=== PATIENT | female | born 1945 | race Caucasian/White ===

== ENCOUNTER 2017-10-30 16:05 | Emergency (ER) | payer OTHER ==
[2017-10-30 16:16] VITALS: BP 147/72; PULSE 97; TEMP 98.9; BMI 31.2
[2017-10-30 18:28] LABS: BASO % 0.5 % (0-2.0); EOS % 3.5 % (0-4.5); HEMATOCRIT 35.3 % (32.4-45.2); HEMOGLOBIN 11.9 GM/dL (10.7-15.3); LYMPH % 34.9 % (8-40); MCHC 33.8 g/dl (32.0-36.0); MEAN CELL VOLUME 85.9 fl (80-96); MEAN PLT VOLUME 9.2 fl (7.5-11.1); NEUT % 55.1 % (42.8-82.8); PLATELET COUNT 240 K/MM3 (134-434); RBC 4.11 M/mm3 (3.60-5.2); RDW 14.6 % (11.6-15.6); WHITE BLOOD COUNT 6.8 K/mm3 (4.0-10.0)
[2017-10-30 18:41] LABS: INR 0.98 (0.82-1.09); PROTHROMBIN TIME (PATIENT) 11.1 SEC (9.98-11.88)
[2017-10-30 18:44] LABS: ACTIVATED PTT 28.1 SECONDS (26.9-34.4)
[2017-10-30 19:18] LABS: ALBUMIN 3.9 g/dl (3.4-5.0); ANION GAP 6 (8-16); BLOOD UREA NITROGEN 27 mg/dL (7-18); CALCIUM 8.7 mg/dL (8.5-10.1); CHLORIDE 105 mmol/L (98-107); CO2 27 mmol/L (21-32); GLUCOSE,RANDOM 245 mg/dL (74-106); POTASSIUM 4.4 mmol/L (3.5-5.1); SGPT/ALT 31 U/L (12-78); SODIUM 138 mmol/L (136-145)
[2017-10-30 19:22] LABS: ALK PHOS 113 U/L (45-117); CREATININE 1.5 mg/dL (0.55-1.02); SGOT/AST 19 U/L (15-37); TOT PROT 7.7 g/dl (6.4-8.2)
[2017-10-30 19:45] LABS: BILIRUBIN,TOTAL < 0.1 mg/dL (0.2-1.0)
--- NOTE | 2017-10-31 13:35 | EKG ---
Test Reason : Blood Pressure : / mmHG Vent. Rate : 094 BPM Atrial Rate : 094 BPM P-R Int : 146 ms QRS Dur : 064 ms QT Int : 348 ms P-R-T Axes : 033 002 026 degrees QTc Int : 435 ms NORMAL SINUS RHYTHM POSSIBLE LEFT ATRIAL ENLARGEMENT INFERIOR INFARCT (CITED ON OR BEFORE 03-NOV-2013) ANTEROSEPTAL INFARCT (CITED ON OR BEFORE 03-NOV-2013) ABNORMAL ECG WHEN COMPARED WITH ECG OF 03-NOV-2013 17:47, NO SIGNIFICANT CHANGE WAS FOUND Confirmed by MD Alfredo, Tony ([id number]) on 10/31/2017 1:35:37 PM Referred By: Confirmed By:Tony Fuentes MD
== END 2017-10-30 20:32 | disposition left against medical advice (07) ==
LOC: JER 16:05
DX: Z53.21 Procedure and treatment not carried out due to patient leaving prior to being seen by health care provider (principal)
CPT/HCPCS: 80053; 82550; 84484; 85025; 85610; 85730; 93005; 93010; 99281-25

== ENCOUNTER 2023-09-18 13:42 | Emergency (ER) | payer OTHER ==
[2023-09-18 14:00] VITALS: BP 138/56; PULSE 98; RESP 18; TEMP 97; BMI 32.0
[2023-09-18] MEDS ORDERED: morphine SULFATE 4 MG/ML VIAL ONE (15:48)
[2023-09-18] MEDS ORDERED: LIDOCAINE 4% PATCH TP ONE (15:49)
[2023-09-18 16:14] LABS: BASO % 0.6 % (0-2.0); EOS % 2.3 % (0-4.5); HEMATOCRIT 33.9 % (32.4-45.2); LYMPH % 25.3 % (8-40); MCH 24.7 pg (25.7-33.7); MCHC 32.6 g/dl (32.0-36.0); MEAN CELL VOLUME 75.8 fl (80-96); MEAN PLT VOLUME 8.1 fl (7.5-11.1); MONO % 6.1 % (3.8-10.2); NEUT % 65.7 % (42.8-82.8); PLATELET COUNT 259 10^3/uL (134-434); RBC 4.47 M/mm3 (3.60-5.2); WHITE BLOOD COUNT 7.6 K/mm3 (4.0-10.0)
[2023-09-18] MEDS: LIDOCAINE 4% PATCH TP ONE (16:18)
[2023-09-18] MEDS: morphine CARPU-JECT 4 MG/1 ML DISP.SYRIN IVPUSH ONE (16:19)
[2023-09-18 16:32] LABS: POTASSIUM 4.7 mmol/L (3.5-5.1)
[2023-09-18 16:34] LABS: ALBUMIN 3.2 g/dl (3.4-5.0); BLOOD UREA NITROGEN 25.4 mg/dL (7-18); CALCIUM 9.6 mg/dL (8.5-10.1)
[2023-09-18 16:37] LABS: CREATININE 1.4 mg/dL (0.55-1.3)
[2023-09-18 16:38] LABS: TOT PROT 7.5 g/dl (6.4-8.2)
[2023-09-18 16:39] LABS: BILIRUBIN,TOTAL 0.5 mg/dL (0.2-1)
[2023-09-18] MEDS ORDERED: oxyCODONE HCL 5 MG TABLET ONE (20:27)
[2023-09-18] MEDS: oxyCODONE HCL 5 MG TABLET PO ONE (20:31)
[2023-09-18] MEDS ORDERED: LIDOCAINE PATCH REMOVAL MC SCH (22:00)
== END 2023-09-18 21:12 | disposition home or self-care (01) ==
LOC: JER 13:42
PROC: 3E033GC Introduction of Other Therapeutic Substance into Peripheral Vein, Percutaneous Approach (ICD-10-PCS; principal; 2023-09-18)
DX: M54.50 Low back pain, unspecified (principal); G89.29 Other chronic pain; R26.2 Difficulty in walking, not elsewhere classified
CPT/HCPCS: 36415; 72125-TC; 72131-TC; 80053; 85025; 96374; 99284-25

== ENCOUNTER 2023-10-17 05:01 | Day surgery (SDC) | payer OTHER ==
[2023-10-12 12:23] VITALS: BMI 31.6
[2023-10-17] MEDS: LIDOCAINE HCL 1% PRESERVATIVE FREE - 30ML VIAL IJ ONE
[2023-10-17] MEDS ORDERED: LIDOCAINE HCL/PF 1% SDV 5ML VIAL ONE (07:10)
[2023-10-17] MEDS ORDERED: BUPIVACAINE HCL/PF 0.75% 10 ML VIAL ONE (07:10)
[2023-10-17 07:33] VITALS: RESP 18
[2023-10-17] MEDS: BUPIVACAINE HCL/PF 0.5% (5MG/ML) 10 ML VIAL IJ ONE ×2 (09:08)
[2023-10-17] MEDS ORDERED: ACETAMINOPHEN 500 MG TABLET (FP) ONE (10:08)
[2023-10-17] MEDS: ACETAMINOPHEN 500 MG TABLET (FP) PO ONE (10:10)
[2023-10-17 11:03] VITALS: BP 141/75; PULSE 83; TEMP 97.9
[2023-10-17] MEDS ORDERED: ACETAMINOPHEN 500 MG TABLET (FP) PO PRN (12:23)
== END 2023-10-17 10:45 | disposition home or self-care (01) ==
LOC: JASU-SURG 05:01
PROVIDERS: ATTEND Pain Medicine Pain Medicine
PROC: 3E0T33Z Introduction of Anti-inflammatory into Peripheral Nerves and Plexi, Percutaneous Approach (ICD-10-PCS; 2023-10-17)
PROC: 3E0T3BZ Introduction of Anesthetic Agent into Peripheral Nerves and Plexi, Percutaneous Approach (ICD-10-PCS; principal; 2023-10-17 08:45)
DX: M47.812 Spondylosis without myelopathy or radiculopathy, cervical region (principal)
CPT/HCPCS: 76000-TC-FY; 82962

== ENCOUNTER 2023-11-28 04:18 | Day surgery (SDC) | payer OTHER ==
[2023-11-24 11:21] VITALS: BMI 31.8
[2023-11-28] MEDS ORDERED: DEXAMETHASONE SOD PHOSPHATE 10 MG/1 ML VIAL ONE (07:20)
[2023-11-28] MEDS ORDERED: LIDOCAINE HCL/PF 1% SDV 5ML VIAL ONE (07:20)
[2023-11-28] MEDS: DEXAMETHASONE SOD PHOSPHATE 4 MG/1 ML VIAL IVPUSH ONE (09:15)
[2023-11-28] MEDS: LIDOCAINE HCL 1%, 10 MG/ML (20ML VIAL) NR ONE (09:15)
[2023-11-28] MEDS: IOHEXOL 180 MG/1 ML ML IJ ONE (09:15)
[2023-11-28] MEDS ORDERED: ACETAMINOPHEN 500 MG TABLET (FP) ONE (09:37)
[2023-11-28] MEDS: ACETAMINOPHEN 500 MG TABLET (FP) PO PRN (09:38)
[2023-11-28 10:04] VITALS: BP 160/80; PULSE 82; RESP 18; TEMP 97.5
== END 2023-11-28 10:13 | disposition home or self-care (01) ==
LOC: JASU-SURG 04:18
PROVIDERS: ATTEND Pain Medicine Pain Medicine
PROC: 3E0R3BZ Introduction of Anesthetic Agent into Spinal Canal, Percutaneous Approach (ICD-10-PCS; 2023-11-28)
PROC: 3E0R33Z Introduction of Anti-inflammatory into Spinal Canal, Percutaneous Approach (ICD-10-PCS; principal; 2023-11-28 09:45)
DX: M54.16 Radiculopathy, lumbar region (principal)
CPT/HCPCS: 76000-TC-FY; 82962; J1100

== ENCOUNTER 2024-01-05 04:20 | Day surgery (SDC) | payer OTHER ==
[2024-01-02 14:07] VITALS: BMI 31.8
[2024-01-05] MEDS ORDERED: BUPIVACAINE HCL/PF 0.75% 10 ML VIAL ONE (07:13)
[2024-01-05] MEDS ORDERED: LIDOCAINE HCL/PF 1% SDV 5ML VIAL ONE (07:14)
[2024-01-05] MEDS: LIDOCAINE HCL 1%, 10 MG/ML (20ML VIAL) NR ONE (09:05)
[2024-01-05] MEDS: BUPIVACAINE HCL/PF 0.75% 10 ML VIAL NR ONE (09:08)
[2024-01-05 09:42] VITALS: BP 141/69; PULSE 84; RESP 16; TEMP 98.4
[2024-01-05] MEDS ORDERED: ACETAMINOPHEN 500 MG TABLET (FP) PO PRN (12:39)
== END 2024-01-05 10:10 | disposition home or self-care (01) ==
LOC: JASU-SURG 04:20
PROVIDERS: ATTEND Pain Medicine Pain Medicine
PROC: 3E0T33Z Introduction of Anti-inflammatory into Peripheral Nerves and Plexi, Percutaneous Approach (ICD-10-PCS; 2024-01-05)
PROC: 3E0T3BZ Introduction of Anesthetic Agent into Peripheral Nerves and Plexi, Percutaneous Approach (ICD-10-PCS; principal; 2024-01-05 08:30)
DX: M48.061 Spinal stenosis, lumbar region without neurogenic claudication (principal)
CPT/HCPCS: 76000-TC-FY

== ENCOUNTER 2024-03-28 04:09 | Day surgery (SDC) | payer OTHER ==
[2024-03-27 17:12] VITALS: BMI 31.8
[2024-03-28 06:47] VITALS: RESP 18
[2024-03-28] MEDS ORDERED: LIDOCAINE HCL/PF 1% SDV 5ML VIAL ONE (07:52)
[2024-03-28] MEDS ORDERED: BUPIVACAINE HCL/PF 0.75% 10 ML VIAL ONE (07:52)
[2024-03-28] MEDS: LIDOCAINE HCL 1% PRESERVATIVE FREE - 30ML VIAL IJ ONE ×2 (09:00)
[2024-03-28] MEDS: BUPIVACAINE HCL/PF 0.75% 10 ML VIAL NR ONE ×2 (09:04)
[2024-03-28 09:59] VITALS: BP 177/76; PULSE 78; TEMP 97.8
[2024-03-28] MEDS ORDERED: ACETAMINOPHEN 500 MG TABLET (FP) PO PRN (11:49)
== END 2024-03-28 09:40 | disposition home or self-care (01) ==
LOC: JASU-SURG 04:09
PROVIDERS: ATTEND Pain Medicine Pain Medicine
PROC: 3E0T3BZ Introduction of Anesthetic Agent into Peripheral Nerves and Plexi, Percutaneous Approach (ICD-10-PCS; principal; 2024-03-28 08:15)
DX: M47.816 Spondylosis without myelopathy or radiculopathy, lumbar region (principal)
CPT/HCPCS: 76000-TC-FY

== ENCOUNTER 2024-04-25 04:17 | Day surgery (SDC) | payer OTHER ==
[2024-04-23 17:47] VITALS: BMI 31.8
[2024-04-25] MEDS ORDERED: BUPIVACAINE HCL/PF 0.75% 10 ML VIAL ONE (07:52)
[2024-04-25] MEDS ORDERED: LIDOCAINE HCL/PF 2% SDV 5ML VIAL ONE (07:52)
[2024-04-25] MEDS ORDERED: LIDOCAINE HCL/PF 1% SDV 5ML VIAL ONE (07:53)
[2024-04-25] MEDS ORDERED: DEXAMETHASONE SOD PHOSPHATE 10 MG/1 ML VIAL ONE (07:53)
[2024-04-25] MEDS: LIDOCAINE HCL 1% PRESERVATIVE FREE - 30ML VIAL IJ ONE (11:32)
[2024-04-25] MEDS: LIDOCAINE HCL/PF 2% SDV 5ML VIAL INF ONE ×2 (11:40)
[2024-04-25] MEDS: DEXAMETHASONE SOD PHOSPHATE 10 MG/1 ML VIAL IM ONE ×2 (11:48)
[2024-04-25] MEDS: BUPIVACAINE HCL/PF 0.5% (5MG/ML) 10 ML VIAL IJ ONE ×2 (11:48)
[2024-04-25 12:26] VITALS: RESP 18
[2024-04-25 12:51] VITALS: BP 124/71; PULSE 83; TEMP 98
== END 2024-04-25 12:50 | disposition home or self-care (01) ==
LOC: JASU-SURG 04:17
PROVIDERS: ATTEND Pain Medicine Pain Medicine
PROC: 015B3ZZ Destruction of Lumbar Nerve, Percutaneous Approach (ICD-10-PCS; principal; 2024-04-25 11:00)
DX: M47.816 Spondylosis without myelopathy or radiculopathy, lumbar region (principal)
CPT/HCPCS: 76000-TC-FY; J1100

== ENCOUNTER 2024-07-04 04:02 | Day surgery (SDC) | payer OTHER ==
[2024-07-03 11:54] VITALS: BMI 31.8
[2024-07-04 07:10] VITALS: RESP 18
[2024-07-04] MEDS ORDERED: DEXAMETHASONE SOD PHOSPHATE 10 MG/1 ML VIAL ONE (07:17)
[2024-07-04] MEDS ORDERED: BUPIVACAINE HCL/PF 0.75% 10 ML VIAL ONE (07:17)
[2024-07-04] MEDS ORDERED: LIDOCAINE HCL/PF 2% SDV 5ML VIAL ONE (07:17)
[2024-07-04] MEDS ORDERED: LIDOCAINE HCL/PF 1% SDV 5ML VIAL ONE (07:17)
[2024-07-04 09:17] VITALS: TEMP 98
[2024-07-04 09:40] VITALS: BP 139/70; PULSE 75
[2024-07-04] MEDS ORDERED: ACETAMINOPHEN 500 MG TABLET (FP) PO PRN (18:17)
== END 2024-07-04 09:35 | disposition home or self-care (01) ==
LOC: JASU-SURG 04:02
PROVIDERS: ATTEND Pain Medicine Pain Medicine
PROC: 015B3ZZ Destruction of Lumbar Nerve, Percutaneous Approach (ICD-10-PCS; principal; 2024-07-04 08:00)
DX: M47.816 Spondylosis without myelopathy or radiculopathy, lumbar region (principal)
CPT/HCPCS: 76000-TC-FY; J1100